=== PATIENT | female | born 2000 | race Caucasian/White ===

== ENCOUNTER 2020-07-02 15:44 | Emergency (ER) | payer BC ==
[2020-07-02] MEDS ORDERED: SUCRALFATE 1 GM/10 ML 1 GM UD PO ONE (16:05)
[2020-07-02] MEDS ORDERED: ONDANSETRON ODT 8 MG TAB SL ONE (16:05)
[2020-07-02] MEDS ORDERED: SODIUM CHLORIDE 0.9% 1000ML 1,000 ML IVS ONE (16:05)
--- NOTE | 2020-07-02 16:48 | RAD ---
EXAM DESCRIPTION: Abdomen Series CLINICAL HISTORY: 19 years Female ,nvd 5 days COMPARISON: None. TECHNIQUE: Frontal view chest x-ray and two views of the abdomen. FINDINGS: The cardiomediastinal silhouette appears unremarkable. No consolidating infiltrates or pleural effusions. No free air is identified beneath the hemidiaphragms. No dilated loops of bowel to suggest obstruction. IMPRESSION: No acute plain film abnormality is identified. Electronically signed by: Elza Rasmussen MD 07/02/2020 4:46 PM CDT
[2020-07-02] MEDS ORDERED: MORPHINE SULFATE INJ 10 MG/ML VIAL IV ONE (17:49)
[2020-07-02] MEDS ORDERED: ALUM & MAG HYDROX-SIMETHICONE 30 ML, LIDOCAINE VISCOUS 2% 15 ML PO ONE ×2 (17:50)
[2020-07-02] MEDS ORDERED: diphenhydrAMINE HCL 50 MG/ML VIAL ONE (18:18)
[2020-07-02] MEDS ORDERED: diphenhydrAMINE HCL 50 MG/ML VIAL IV ONE (18:19)
[2020-07-02] MEDS ORDERED: PROMETHAZINE HCL INJ 25 MG in SODIUM CHLORIDE 0.9% 50ML 50 ML IVPB ONE (18:39)
--- NOTE | 2020-07-02 19:20 | CT ---
EXAM DESCRIPTION: Abdomen/Pelvis w/Contrast 07/02/2020 7:13 PM CDT CLINICAL HISTORY: 19 years, Female, abd pain, nv COMPARISON: None PROCEDURE: Contrast-enhanced images of the abdomen and pelvis were performed utilizing 2 mm slice thickness at 2 mm interval reconstruction from the lung bases to the ischial tuberosities after the administration of IV contrast. In addition multiplanar reformats in the coronal and sagittal plane were obtained and reviewed. An individualized dose optimization technique, Automated Exposure Control, was utilized for the performed procedure. FINDINGS: The lung bases demonstrate to be clear. The liver, pancreas, spleen and adrenal glands demonstrate to be unremarkable, no focal lesions are noted. There is unfolding of the fundus of the gallbladder with a questionable dense material in it perhaps ingesting cholelithiasis. There is no biliary duct dilatation. The kidneys demonstrate normal uptake of contrast media. No hydronephrosis and/or stones were identified. Grossly the unopacified stomach, small bowel and large bowel demonstrate to be within normal limits. Fecal residue and underdistention within the large bowel limits the evaluation. There is suboptimal distention of the splenic flexure, left site colon limiting diagnostic value. No significant bowel dilatation is seen. Mild prominence of the proximal small bowel loops. The appendix is normal. The urinary bladder demonstrate to be unremarkable. The uterus was not visualized. There is normal appearance of the right adnexa. The aorta demonstrate to be normal. There is no retroperitoneal lymphadenopathy. There is no evidence for ascites and/or abnormal fluid collections. The bone windows demonstrate no significant skeletal lesions. Soft tissues demonstrate to be unremarkable. IMPRESSION: QUESTIONABLE DENSE MATERIAL WITHIN THE FUNDUS OF THE GALLBLADDER SUGGESTING THE POSSIBILITY OF CHOLELITHIASIS IN/OR SLUDGE. ABSENCE OF THE UTERUS. SUBOPTIMAL DISTENTION OF THE LARGE BOWEL. NORMAL APPENDIX. NO EVIDENCE FOR ACUTE INTRA-ABDOMINAL PROCESS. Electronically signed by: Ho Canales MD 07/02/2020 7:18 PM CDT
[2020-07-02] MEDS ORDERED: levoFLOXacin 500MG IV 500 MG in PREMIX BAG 1 BAG IVPB ONE (19:25)
[2020-07-02] MEDS ORDERED: metroNIDAZOLE 500 MG TAB PO ONE (19:25)
--- NOTE | 2020-07-02 20:04 | ED.PDOC ---
History of Present Illness - General Chief Complaint: Abdominal Pain Stated Complaint: abdominal pain Time Seen by Provider: 07/02/20 15:46 Source: patient Exam Limitations: no limitations - History of Present Illness Initial Comments: The patient is a 19-year-old female presents emergency room secondary to 4 to 5 days of progressive symptoms of abdominal cramping. She has had some diarrhea but mostly she has had some episodes of vomiting. No blood. No history of C. difficile colitis. The patient does apparently have a history of chronic eosinophilic esophagitis and gastritis. She does take steroids for these. No definite fever. She tested negative yesterday according to her for coronavirus. She is having some abdominal cramping and is afraid she is getting dehydrated. Timing/Duration: other Severity: moderate Improving Factors: nothing Worsening Factors: nothing Associated Symptoms: loss of appetite, malaise, nausea/vomiting Allergies/Adverse Reactions: Allergies Morphine Allergy (Verified 07/02/20 19:05) Home Medications: Ambulatory Orders Ciprofloxacin [Cipro] 500 mg PO BID #10 tab 07/02/20 Ondansetron Odt [Zofran ODT] 4 mg PO Q8HR PRN #5 tab 07/02/20 Sucralfate Tab [Carafate Tab] 1 gm PO QID #60 tab 07/02/20 Review of Systems - Review of Systems Constitutional: States: malaise EENTM: States: no symptoms reported Respiratory: States: no symptoms reported Cardiology: States: no symptoms reported Gastrointestinal/Abdominal: States: abdominal pain, diarrhea, nausea, vomiting Genitourinary: States: no symptoms reported Musculoskeletal: States: no symptoms reported Skin: States: no symptoms reported Neurological: States: headache - She does report a mild headache along with vomiting. Endocrine: States: no symptoms reported All other Systems: No Change from Baseline Past Medical History (General) - Patient Medical History Hx Diabetes: No Hx Gastroesophageal Reflux: Yes Surgical History: Hysterectomy - Activities of Daily Living Hospice Agency (if applicable):: None - Female History Patient : No Family Medical History - Family History Mother Family History: Unknown Physical Exam - Physical Exam General Appearance: Alert, Anxious Eye Exam: bilateral normal Ears, Nose, Throat: hearing grossly normal, normal pharynx Neck: full range of motion, supple Respiratory: lungs clear, normal breath sounds, no respiratory distress, no accessory muscle use Cardiovascular/Chest: normal peripheral pulses, regular rate, rhythm - Sinus tachycardia for the most part, no edema Peripheral Pulses: radial,right: 2+, radial,left: 2+ Gastrointestinal/Abdominal: soft, other - Primarily epigastric discomfort to palpation. Rectal Exam: deferred Back Exam: no CVA tenderness, no vertebral tenderness Extremity: normal range of motion, non-tender, normal inspection, no pedal edema, normal capillary refill Neurologic: ladle filler II-XII nml as tested, alert, normal mood/affect, oriented x 3 Skin Exam: normal color Comments: Vital Signs - 24 hr 07/02/20 07/02/20 07/02/20 15:45 16:04 16:45 Temperature 97.8 F 97.8 F Pulse Rate [ 132 H 132 H 105 H pulse ox] Respiratory 20 20 18 Rate Blood Pressure 123/97 115/79 [Left Arm] O2 Sat by Pulse 99 98 Oximetry 07/02/20 07/02/20 07/02/20 17:40 18:00 19:06 Temperature 97.8 F Pulse Rate [ 108 H 102 H 73 pulse ox] Respiratory 20 18 14 Rate Blood Pressure 115/79 106/79 113/84 [Left Arm] O2 Sat by Pulse 100 99 99 Oximetry Progress - Progress Progress: 07/02/20 20:05 The patient is a 19-year-old female presented emergency room secondary to increased abdominal cramping along with some nausea and vomiting. She did have mild dehydration and received a liter of IV fluids. CT scan was reassuring. Laboratory work shows leukocytosis which is apparently a chronic thing for her. The patient does apparently have chronic eosinophilic esophagitis and gastritis which may be the source of the flare. At this point in time we cannot rule out viral or acute bacterial gastritis. The patient will be placed on ciprofloxacin for the next 5 days. She will additionally be placed on Carafate and will be written for Zofran for nausea and vomiting control. She does need to continue her chronic medications for her GI issues. I do want her to follow back up with her primary care doctor within the next week as well. ER warnings are given. The patient is doing better at this point. She did have a allergic reaction to morphine in the form of hives. She received Benadryl for that. kane saunders [phone] - Results/Orders Results/Orders: CT scan of abdomen pelvis shows no acute pathology. There may be some mild gallbladder sludge or early stone formation. Normal appendix. See report for details. EKG shows sinus tachycardia at 120 bpm. There are scattered diffuse small Q waves. No ST segment or T wave changes indicative of acute ischemia. Normal R wave progression. Normal QT interval. Essentially normal axis. Laboratory Tests 07/02/20 07/02/20 07/02/20 16:45 16:45 16:45 WBC 19.9 H RBC 4.76 Hgb 13.9 Hct 40.6 MCV 85.3 MCH 29.3 MCHC 34.3 RDW 13.0 Plt Count 204 MPV 9.5 Absolute Neuts (auto) Not Reportable Absolute Lymphs (auto) Not Reportable Absolute Monos (auto) Not Reportable Absolute Eos (auto) Not Reportable Neutrophils % Not Reportable Neutrophils % (Manual) 66.0 Lymphocytes % Not Reportable Lymphocytes % (Manual) 21.0 Monocytes % Not Reportable Monocytes % (Manual) 2.0 Eosinophils % Not Reportable Basophils % Not Reportable Band Neutrophils 1.0 Eosinophils 10.0 Platelet Estimate Normal Normal RBC Morphology Normal rbc morph Sodium 137 Potassium 4.0 Chloride 103 Carbon Dioxide 21 Anion Gap 17.0 BUN 20 H Creatinine 0.97 BUN/Creatinine Ratio 20.6 H Random Glucose 85 Serum Osmolality 275.7 Lactic Acid Calcium 8.7 Magnesium 1.9 Total Bilirubin 1.2 H AST 14 ALT 15 Alkaline Phosphatase 71 L Creatine Kinase 25 L CK-MB (CK-2) 0.8 CK-MB (CK-2) % Not Reportable Troponin I < 0.02 B-Natriuretic Peptide 18.6 Serum Total Protein 7.1 Albumin 3.7 Globulin 3.4 Albumin/Globulin Ratio 1.1 Amylase 40 Lipase 32 TSH 3.38 Urine Color Urine Appearance Urine pH Ur Specific [place] Urine Protein Urine Glucose (UA) Urine Ketones Urine Blood Urine Nitrite Urine Bilirubin Urine Urobilinogen Ur Leukocyte Esterase Urine RBC Urine WBC Ur Epithelial Cells Urine Bacteria Urine Mucus 07/02/20 07/02/20 16:45 17:30 WBC RBC Hgb Hct MCV MCH MCHC RDW Plt Count MPV Absolute Neuts (auto) Absolute Lymphs (auto) Absolute Monos (auto) Absolute Eos (auto) Neutrophils % Neutrophils % (Manual) Lymphocytes % Lymphocytes % (Manual) Monocytes % Monocytes % (Manual) Eosinophils % Basophils % Band Neutrophils Eosinophils Platelet Estimate Normal RBC Morphology Sodium Potassium Chloride Carbon Dioxide Anion Gap BUN Creatinine BUN/Creatinine Ratio Random Glucose Serum Osmolality Lactic Acid 0.8 Calcium Magnesium Total Bilirubin AST ALT Alkaline Phosphatase Creatine Kinase CK-MB (CK-2) CK-MB (CK-2) % Troponin I B-Natriuretic Peptide Serum Total Protein Albumin Globulin Albumin/Globulin Ratio Amylase Lipase TSH Urine Color Yellow Urine Appearance Clear Urine pH 6.0 Ur Specific [place] 1.025 Urine Protein Negative Urine Glucose (UA) Negative Urine Ketones 40 H Urine Blood Negative Urine Nitrite Negative Urine Bilirubin Small H Urine Urobilinogen 0.2 Ur Leukocyte Esterase Negative Urine RBC 0-1 Urine WBC 1-3 Ur Epithelial Cells 3-5 Urine Bacteria Rare Urine Mucus Small Departure - Departure 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 Copy, Patient Portal Self Enrollment Instructions: DI for Abdominal Pain-Adult, Eosinophilic Esophagitis Diet: bland diet Activity: increase activity as tolerated Prescriptions: Ondansetron Odt [Zofran ODT] 4 mg PO Q8HR PRN #5 tab PRN Reason: Nausea--Moderate Sucralfate Tab [Carafate Tab] 1 gm PO QID #60 tab Ciprofloxacin [Cipro] 500 mg PO BID #10 tab Home Medications: Ambulatory Orders Ciprofloxacin [Cipro] 500 mg PO BID #10 tab 07/02/20 Ondansetron Odt [Zofran ODT] 4 mg PO Q8HR PRN #5 tab 07/02/20 Sucralfate Tab [Carafate Tab] 1 gm PO QID #60 tab 07/02/20 Additional Instructions: The patient is a 19-year-old female presented emergency room secondary to increased abdominal cramping along with some nausea and vomiting. She did have mild dehydration and received a liter of IV fluids. CT scan was reassuring. Laboratory work shows leukocytosis which is apparently a chronic thing for her. The patient does apparently have chronic eosinophilic esophagitis and gastritis which may be the source of the flare. At this point in time we cannot rule out viral or acute bacterial gastritis. The patient will be placed on ciprofloxacin for the next 5 days. She will additionally be placed on Carafate and will be written for Zofran for nausea and vomiting control. Liquid Maalox can be used additionally as needed. Small frequent bland meals are recommended. Increase fluid intake. She does need to continue her chronic medications for her GI issues. I do want her to follow back up with her primary care doctor within the next week as well. ER warnings are given. The patient is doing better at this point. She did have a allergic reaction to morphine in the form of hives. She received Benadryl for that.
[2020-07-02 20:37] VITALS: TEMP 98; O2SAT 98
[2020-07-02 20:50] VITALS: BP 120/88
== END 2020-07-02 20:51 | disposition home or self-care (01) ==
LOC: ER 15:44
DX: K52.81 Eosinophilic gastritis or gastroenteritis (principal); E86.0 Dehydration; K21.9 Gastro-esophageal reflux disease without esophagitis; K20.0 Eosinophilic esophagitis; R53.83 Other fatigue; Z79.899 Other long term (current) drug therapy
CPT/HCPCS: 36415; 74019; 74177; 80053; 81001; 82150; 82550; 82553; 83605; 83690; 83735; 83880; 84443; 84484; 85025; 93005; A4216; J1200; J1956; J2270; J2550; J7030

== ENCOUNTER 2020-08-23 16:07 | Emergency (ER) | payer BC ==
[2020-08-23] MEDS ORDERED: ALUM & MAG HYDROX-SIMETHICONE 30 ML, LIDOCAINE VISCOUS 2% 15 ML PO ONE ×2 (16:19)
[2020-08-23] MEDS ORDERED: SODIUM CHLORIDE 0.9% 1000ML 1,000 ML IVS ONE (16:20)
[2020-08-23] MEDS ORDERED: ONDANSETRON ODT 8 MG TAB SL ONE (16:20)
[2020-08-23] MEDS ORDERED: PANTOPRAZOLE SODIUM IV 40 MG VIAL IV ONE (16:20)
[2020-08-23 16:29] VITALS: TEMP 98.9; O2SAT 99
--- NOTE | 2020-08-23 17:58 | ED.PDOC ---
History of Present Illness - General Chief Complaint: Problem Stated Complaint: N/D and abd pain Time Seen by Provider: 08/23/20 16:19 Source: patient Exam Limitations: no limitations - History of Present Illness Initial Comments: The patient is a 20-year-old female presented emergency room secondary to intestinal upset. The patient has had some nausea and diarrhea. She has had decreased oral intake over the last 3 to 4 days. She has a longstanding history of eosinophilic gastritis and esophagitis. She did receive a flu vaccine earlier in the week and her issues have flared up since then. She has had this happen to her multiple times in the past with vaccines. She does not appear to be markedly dehydrated. No evidence of any focal abdominal pain on exam. Vital signs are stable. She is pleasant and cooperative. She reports this mostly when this happens but she does better if she moves some IV fluid short-term. Allergies/Adverse Reactions: Allergies Morphine Allergy (Verified 08/23/20 16:42) Home Medications: Ambulatory Orders Ciprofloxacin [Cipro] 500 mg PO BID #10 tab 07/02/20 Ondansetron Odt [Zofran ODT] 4 mg PO Q8HR PRN #5 tab 07/02/20 Sucralfate Tab [Carafate Tab] 1 gm PO QID #60 tab 07/02/20 Review of Systems - Review of Systems Constitutional: States: malaise EENTM: States: no symptoms reported Respiratory: States: no symptoms reported Cardiology: States: no symptoms reported Gastrointestinal/Abdominal: States: diarrhea, nausea Genitourinary: States: no symptoms reported Musculoskeletal: States: no symptoms reported Skin: States: no symptoms reported Neurological: States: no symptoms reported Endocrine: States: no symptoms reported All other Systems: No Change from Baseline Past Medical History (General) - Patient Medical History Hx Stroke: No Hx of COPD: No Hx Cardiac Disorders: No Hx Congestive Heart Failure: No Hx Hypertension: No Hx Diabetes: No Hx Gastroesophageal Reflux: Yes Hx Cancer: No Surgical History: Hysterectomy - Vaccination History Hx Influenza Vaccination: Yes - Social History Hx Tobacco Use: No Hx Alcohol Use: No Hx Substance Use: No Hx Substance Use Treatment: No Hx Depression: No - Female History Patient is a Female of Child Bearing Age (10 -59 yrs old): Yes Patient : No - Hyst Family Medical History - Family History Mother Family History: Unknown Living Status: Still Living Physical Exam - Physical Exam General Appearance: Alert, Comfortable, No apparent distress Eye Exam: bilateral normal Ears, Nose, Throat: hearing grossly normal, normal pharynx Neck: full range of motion, supple Respiratory: no respiratory distress, no accessory muscle use Cardiovascular/Chest: normal peripheral pulses, no edema Peripheral Pulses: radial,right: 2+, radial,left: 2+ Gastrointestinal/Abdominal: non tender, soft Rectal Exam: deferred Back Exam: no CVA tenderness, no vertebral tenderness Extremity: normal range of motion, non-tender, normal inspection, no pedal edema, normal capillary refill 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 She apparently is having typical symptoms for a flare for her. She is here to receive some IV fluids as she feels she is mildly dehydrated. She did receive a liter of IV fluids as well as GI medications here. Laboratory work is reassuring. She does carry a chronic leukocytosis likely due to the chronic oral steroid usage. Obviously if the patient is worsening over the coming days then a repeat, more in-depth evaluation would be warranted. ER warnings are given. Keep follow-up with primary care doctor next week. kane saunders [phone] - Results/Orders Results/Orders: Laboratory Tests 08/23/20 08/23/20 16:25 16:25 WBC 18.7 H RBC 4.77 Hgb 14.0 Hct 41.1 MCV 86.2 MCH 29.4 MCHC 34.1 RDW 13.8 Plt Count 245 MPV 10.0 Absolute Neuts (auto) 10.60 H Absolute Lymphs (auto) 3.50 H Absolute Monos (auto) 0.70 Absolute Eos (auto) 3.80 H Absolute Basos (auto) 0.10 Neutrophils % 56.8 Lymphocytes % 18.6 L Monocytes % 3.8 Eosinophils % 20.1 H Basophils % 0.7 Sodium 140 Potassium 3.9 Chloride 106 Carbon Dioxide 22 Anion Gap 15.9 BUN 16 Creatinine 0.91 BUN/Creatinine Ratio 17.6 Random Glucose 86 Serum Osmolality 279.9 Calcium 8.8 Magnesium 2.0 Total Bilirubin 1.1 H AST 14 ALT 15 Alkaline Phosphatase 93 Serum Total Protein 7.5 Albumin 3.9 Globulin 3.6 H Albumin/Globulin Ratio 1.1 Amylase 23 L Lipase 29 Departure - Departure 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 Copy, Patient Portal Self Enrollment Instructions: Dehydration, Adult (DC) Diet: bland diet Activity: increase activity as tolerated Home Medications: Ambulatory Orders Ciprofloxacin [Cipro] 500 mg PO BID #10 tab 07/02/20 Ondansetron Odt [Zofran ODT] 4 mg PO Q8HR PRN #5 tab 07/02/20 Sucralfate Tab [Carafate Tab] 1 gm PO QID #60 tab 07/02/20 Additional Instructions: The patient is a 20-year-old female presenting to emergency room secondary to a flare of her eosinophilic gastritis. She apparently is having typical symptoms for a flare for her. She is here to receive some IV fluids as she feels she is mildly dehydrated. She did receive a liter of IV fluids as well as GI medications here. Laboratory work is reassuring. She does carry a chronic leukocytosis likely due to the chronic oral steroid usage. Obviously if the patient is worsening over the coming days then a repeat, more in-depth evaluation would be warranted. ER warnings are given. Keep follow-up with primary care doctor next week.
[2020-08-23 19:12] VITALS: BP 112/60
== END 2020-08-23 19:12 | disposition home or self-care (01) ==
LOC: ER 16:07
DX: R19.7 Diarrhea, unspecified (principal); E86.0 Dehydration; R11.0 Nausea; D72.829 Elevated white blood cell count, unspecified; K21.9 Gastro-esophageal reflux disease without esophagitis; Z79.52 Long term (current) use of systemic steroids; Z88.5 Allergy status to narcotic agent
CPT/HCPCS: 36415; 80053; 82150; 83690; 83735; 85025; J7030